=== PATIENT | male | born 1960 | race Caucasian/White ===

== ENCOUNTER → 2018-02-14 | Outpatient (CLI) | payer OTHER ==
--- NOTE | 2018-02-14 11:48 | Diagnostic Imaging Report ---
PROCEDURE:ABDOMINAL ULTRASOUND COMPARISON:CT of the abdomen from 01/12/2010 INDICATIONS:RUQ PAIN TECHNIQUE: Hamilton-scale and color sonographic images were obtained of the abdomen in transverse and sagittal planes. FINDINGS: Liver: 15.7 in length in right midclavicular line. Slightly increased echogenicity. No masses. Main portal vein: 0.9 cm in caliber,, hepatopetal flow Gallbladder: No stones, sludge, wall thickening, or pericolic cystic fluid. Common Bile Duct: 0.3 cm, no dilatation. Sonographic Castro's sign: Negative Right kidney: 13.6 cm in length. There is a 0.8 x 1.2 x 1.4 cm echogenic lesion in the midpole of the right kidney with no shadowing. There is technical artifact on color Doppler. No hydronephrosis. Left kidney: 12.5 cm in length. No stones, hydronephrosis, or solid mass. Spleen: 10.2 cm in length. Pancreas: The pancreas is not well-visualized due to overlying bowel gas Inferior vena cava: Patent Aorta: Within normal limits Ascites: None CONCLUSION: 1. Mildly increased liver parenchymal echogenicity suggesting steatosis. 2. No biliary ductal dilatation or gallbladder abnormality. 3. 1.4 cm echogenic lesion in the midpole of the right kidney probably represents a nonobstructing stone. Recommend stone protocol CT of the abdomen for confirmation. Dictated by: Dequan Neumann M.D. on 02/14/2018 at 11:49 Electronically approved by: Dequan Neumann M.D. on 02/14/2018 at 11:49
== END ==
LOC: US 09:14
PROVIDERS: ATTEND Family Medicine
DX: R10.11 Right upper quadrant pain (principal)
CPT/HCPCS: 76700

== ENCOUNTER → 2019-10-04 | Day surgery (SDC) | payer OTHER ==
[~2019-10-04] MED LIST: CALCIUM MAGNES1 EAC2 PO; CRESTOR10 MG PO; FENTANYL CITRATE/PF 100MCG/2 ML INJ ONE; FISH OIL 1,0001 EAC2 PO; FOLIC ACID PO; LIDOCAINE HCL 2% LOCAL INJ 5 ML SDV VIAL INJ ONE; LOSARTAN POTASS25 MG PO; MELOXICAM7.5 MG PO; METFORMIN HCL500 MG PO; MIDAZOLAM HCL 2 MG/2 ML VIAL ONE; MULTIVITAMINS1 EAC7 PO; PROPOFOL IV EMULSION 10 MG/ML 50 ML VIAL ONE; VITAMIN B122500 MCG PO; VITAMIN E400 UNI1 PO
--- OUTSIDE RECORDS SUMMARY | 2019-10-04 09:37 | XMS REPORT ---
Author [facility] Address Unknown Phone Unavailable Care Team Providers Care Newsperson Name Role Phone CHAIM ELLIOTT Unavailable Unavailable Payers Payer Name Policy Type Policy Number Effective Date Expiration Date Problems This patient has no known problems. Allergies, Adverse Reactions, Alerts Allergy Name Allergy Type Status Severity Reaction(s) Onset Date Inactive Date Treating Clinician Comments No Known Drug Allergies DA Active U 2018-09-11 00:00:00 No Known Allergies DA Active U 2013-09-25 00:00:00 Medications This patient has no known medications. Results Test Description Test Time Test Comments Text Results Atomic Results Result Comments US ABDOMEN COMPLETE [place] [address] Patient Name: ALYCIA VEGAS MR #: [id number] : 1960 Age/Sex: 57/M Req #: [id number] Adm Physician: Ordered by: CHAIM ELLIOTT DO Report #: [id number] Location: US Room/Bed: Procedure: [id number] US/US ABDOMEN COMPLETE Exam Date: 02/14/18 Exam Time: 0945 REPORT STATUS: Signed PROCEDURE: ABDOMINAL ULTRASOUND COMPARISON: CT of the abdomen from 01/12/2010 INDICATIONS: RUQ PAIN TECHNIQUE: Hamilton-scale and color sonographic images were obtained of the abdomen in transverse and sagittal planes. FINDINGS: Liver: 15.7 in length in right midclavicular line. Slightly increased echogenicity. No masses. Main portal vein: 0.9 cm in caliber,, hepatopetal flow Gallbladder: No stones, sludge, wall thickening, or pericolic cystic fluid. Common Bile Duct: 0.3 cm, no dilatation. Sonographic Castro's sign: Negative Right kidney: 13.6 cm in length. There is a 0.8 x 1.2 x 1.4 cm echogenic lesion in the midpole of the right kidney with no shadowing. There is technical artifact on color Doppler. No hydronephrosis. Left kidney: 12.5 cm in length. No stones, hydron ephrosis, or solid mass. Spleen: 10.2 cm in length. Pancreas: The pancreas is not well-visualized due to overlying bowel gas Inferior vena cava: Patent Aorta: Within normal limits Ascites: None CONCLUSION: 1. Mildly increased liver parenchymal echogenicity suggesting steatosis. 2. No biliary ductal dilatation or gallbladder abnormality. 3. 1.4 cm echogenic lesion in the midpole of the right kidney probably represents a nonobstructing stone. Recommend stone protocol CT of the abdomen for confirmation. Dictated by: Dariana Neumann M.D. on 02/14/2018 at 11:49 Electronically approved by: Dariana Neumann M.D. on 02/14/2018 at 11:49 Dictated By: DARIANA NEUMANN MD [id number] Transcribed By: MICAH on 02/14/18 1149 COPY TO: CHAIM ELLIOTT DO
[2019-10-04 13:00] VITALS: BP 149/99
--- NOTE | 2019-10-04 19:31 | Operative Report ---
DATE OF PROCEDURE: 10/04/2019 SURGEON: Stone Melendez MD PROCEDURE PERFORMED: Colonoscopy. PREOPERATIVE DIAGNOSES: History of colon polyps and hematochezia. POSTOPERATIVE DIAGNOSIS: Three colon polyps found, transverse colon, descending colon, sigmoid colon, all removed with hot biopsy forceps. Scattered diverticula were seen and internal hemorrhoids were noted. PREOPERATIVE MEDICATIONS: Consisted of MAC anesthesia. DESCRIPTION OF PROCEDURE: Using an [employer] video colonoscope was inserted into the patient's rectum and advanced without difficulty to the level of the cecum. The colon was studied from that level back down to the rectum. There was 4 mm size polyp in the mid transverse colon. Another 4 mm size polyp in the mid descending colon and another 4 mm size polyp in the sigmoid colon. All removed with hot biopsy forceps. Some scattered diverticula were seen and as we withdrew the scope to the patient's rectum, internal hemorrhoids were noted. The colonoscope was withdrawn from the patient's rectum and the procedure was ended. Stone Melendez MD SAF/MODL /[id number]
== END | disposition home or self-care (01) ==
LOC: OR 09:35
PROVIDERS: ATTEND Internal Medicine Gastroenterology
DX: K92.1 Melena (principal); D12.4 Benign neoplasm of descending colon; K59.00 Constipation, unspecified; K57.30 Diverticulosis of large intestine without perforation or abscess without bleeding; K64.8 Other hemorrhoids; N41.0 Acute prostatitis; I10 Essential (primary) hypertension; E11.9 Type 2 diabetes mellitus without complications; E78.5 Hyperlipidemia, unspecified; Z01.810 Encounter for preprocedural cardiovascular examination; Z79.84 Long term (current) use of oral hypoglycemic drugs; Z68.43 Body mass index [BMI] 50.0-59.9, adult
CPT/HCPCS: 36415; 45384; 82948; 93005; J2001; J2250; J2704; J3010; 45378

== ENCOUNTER 2025-01-10 12:19 | Inpatient (IN) | payer MEDICARE, OTHER ==
[~2025-01-10] VITALS: Ht 165.1 cm; Wt 123.8 kg
[~2025-01-10 12:19] MED LIST changes: -FENTANYL CITRATE/PF 100MCG/2 ML INJ ONE; -LIDOCAINE HCL 2% LOCAL INJ 5 ML SDV VIAL INJ ONE; -MIDAZOLAM HCL 2 MG/2 ML VIAL ONE; -PROPOFOL IV EMULSION 10 MG/ML 50 ML VIAL ONE
[2025-01-10] MEDS ORDERED: DEXMEDETOMIDINE HCL 200 MCG/2 ML VIAL ONE (12:24)
[2025-01-10 12:55] LABS: BASOPHILS % 0.2 % (0.0-1.0); EOSINOPHILS % 0.1 % (0.0-6.0); HEMATOCRIT 44.5 % (38.2-49.6); HEMOGLOBIN 15.4 g/dL (14.0-18.0); LYMPHOCYTES # (AUTO) 0.2 (1.0-3.2); LYMPHOCYTES % 2.4 % (18.0-39.1); MEAN CORPUSCULAR HGB CONC 34.6 g/dL (31-35); MEAN CORPUSCULAR VOLUME 89.5 fL (81-99); MONOCYTES # (AUTO) 0.2 (0.2-0.8); MONOCYTES % 2.2 % (4.4-11.3); NEUTROPHILS # (AUTO) 9.1 (2.1-6.9); NEUTROPHILS % 94.7 % (38.7-80.0); PLATELET COUNT 202 x10e3/uL (140-360); RED BLOOD COUNT 4.97 x10e6/uL (4.3-5.7); RED CELL DISTRIBUTION WIDTH 12.8 % (11.7-14.4); WHITE BLOOD COUNT 9.61 x10e3/uL (4.8-10.8)
[2025-01-10 13:17] LABS: ALBUMIN 3.7 g/dL (3.5-5.0); ALBUMIN/GLOBULIN RATIO 1.3 (0.8-2.0); ANION GAP 17.8 mmol/L (8-16); BILIRUBIN,TOTAL 3.4 mg/dL (0.2-1.2); CALCIUM 9.3 mg/dL (8.4-10.2); CREATININE, SERUM 0.95 mg/dL (0.72-1.25); POTASSIUM 3.8 mmol/L (3.5-5.1); TOTAL PROTEIN 6.5 g/dL (6.5-8.1)
[2025-01-10] MEDS ORDERED: IOPAMIDOL 370 MG/ML 100 ML INFUS..BTL INJ ONE (13:17)
[2025-01-10] MEDS: ONDANSETRON HCL INJ 2MG/ML 2ML 2 MG/ML VIAL IV STA (13:55)
[2025-01-10] MEDS: SODIUM CHLORIDE 0.9% 1000ML 1,000 ML IV STA ×2 (13:55→19:37)
[2025-01-10] MEDS: KETOROLAC TROMETHAMINE 30 MG/ML VIAL IV STA (13:55)
[2025-01-10] MEDS ORDERED: ONDANSETRON ODT4 MG PO (15:17)
[2025-01-10] MEDS ORDERED: DICYCLOMINE HCL20 MG PO (15:17)
[2025-01-10] MEDS: LACTATED RINGER'S 1,000 ML INJ ONE (17:47)
[2025-01-10] MEDS: ACETAMINOPHEN 1000 MG/100 ML IV STA (17:47)
[2025-01-10 17:59] LABS: BILIRUBIN,URINE NEGATIVE (NEGATIVE); CLARITY,URINE CLEAR (CLEAR); COLOR,URINE YELLOW (YELLOW); GLUCOSE, URINE NEGATIVE (NEGATIVE); KETONES,URINE NEGATIVE (NEGATIVE); LEUKOCYTE ESTERASE ,URINE NEGATIVE (NEGATIVE); NITRITE,URINE NEGATIVE (NEGATIVE); PH,URINE 7 (5 - 7); PROTEIN,URINE DIPSTICK NEGATIVE (NEGATIVE); URINE UROBILINOGEN 0.2 mg/dL (0.2 - 1)
[2025-01-10 18:00] LABS: RBC,URINE 0-5 /HPF (0-5); WBC,URINE (MAN) 0-5 /HPF (0-5)
[2025-01-10 18:01] LABS: BACTERIA,URINE RARE /HPF; EPITHELIAL CELLS,URINE RARE /LPF
[2025-01-10 19:51] VITALS: PULSE 108; RESP 19; TEMP 100.1
[2025-01-10] MEDS ORDERED: ONDANSETRON HCL INJ 2MG/ML 2ML 2 MG/ML VIAL IV PRN (20:15)
[2025-01-10 20:18] LABS: INFLUENZA A AG NEGATIVE (NEGATIVE)
[2025-01-10 20:19] LABS: CORONAVIRUS COVID-19 AG NEGATIVE (NEGATIVE); INFLUENZA B AG NEGATIVE (NEGATIVE)
[2025-01-10] MEDS: NOREPINEPHRINE 8 MG/D5W 250 ML 250 ML IV SCH (21:00)
[2025-01-10 21:06] VITALS: BP 138/83; PULSE 107; RESP 20; TEMP 98.5; O2SAT 96
[2025-01-10 21:08] LABS: TROPONIN I 0.001 ng/mL (0-0.300)
[2025-01-10] MEDS ORDERED: DEXTROSE 50% SYRINGE 50 ML IV PRN (21:15)
[2025-01-10 21:23] VITALS: BP 138/93; PULSE 86; RESP 20; TEMP 98.5; O2SAT 96
[2025-01-10 21:31] VITALS: PULSE 95; RESP 22; O2SAT 95
[2025-01-10 22:00] VITALS: BP 116/77; PULSE 107; RESP 22; O2SAT 94
[2025-01-10 22:50] LABS: CHOL/HDL RATIO 1.9 (3.9-4.7)
[2025-01-10 23:00] VITALS: BP 110/71; PULSE 108; RESP 23; O2SAT 95
[2025-01-11] VITALS (41 sets, daily range): BP systolic 84–144; BP diastolic 61–101; PULSE 74–114; RESP 13–23; TEMP 98.3–100.8; O2SAT 90–100
[2025-01-11] MEDS: Morphine 4mg INJECTION 4 MG/ML INJ IV PRN (00:05)
[2025-01-11] MEDS: SODIUM CHLORIDE 0.9% 1000ML 1,000 ML IV SCH (00:57)
[2025-01-11 06:49] LABS: BASOPHILS # (AUTO) 0.1 (0.0-0.1); BASOPHILS % 0.4 % (0.0-1.0); EOSINOPHILS # (AUTO) 0.2 (0.0-0.4); EOSINOPHILS % 1.7 % (0.0-6.0); HEMATOCRIT 38.9 % (38.2-49.6); HEMOGLOBIN 13.2 g/dL (14.0-18.0); LYMPHOCYTES # (AUTO) 0.9 (1.0-3.2); LYMPHOCYTES % 6.7 % (18.0-39.1); MEAN CORPUSCULAR HEMOGLOBIN 31.1 pg (28-32); MEAN CORPUSCULAR HGB CONC 33.9 g/dL (31-35); MEAN CORPUSCULAR VOLUME 91.5 fL (81-99); MONOCYTES # (AUTO) 0.7 (0.2-0.8); MONOCYTES % 5.1 % (4.4-11.3); NEUTROPHILS # (AUTO) 11.2 (2.1-6.9); NEUTROPHILS % 84.6 % (38.7-80.0); PLATELET COUNT 152 x10e3/uL (140-360); RED BLOOD COUNT 4.25 x10e6/uL (4.3-5.7); RED CELL DISTRIBUTION WIDTH 13.3 % (11.7-14.4); WHITE BLOOD COUNT 13.23 x10e3/uL (4.8-10.8)
[2025-01-11 07:06] LABS: ALBUMIN 2.9 g/dL (3.5-5.0); ALBUMIN/GLOBULIN RATIO 1.2 (0.8-2.0); ANION GAP 13.2 mmol/L (8-16); BILIRUBIN,TOTAL 2.3 mg/dL (0.2-1.2); CALCIUM 7.8 mg/dL (8.4-10.2); CREATININE, SERUM 1.02 mg/dL (0.72-1.25); POTASSIUM 4.2 mmol/L (3.5-5.1); TOTAL PROTEIN 5.4 g/dL (6.5-8.1)
[2025-01-11 07:12] LABS: TROPONIN I 0.005 ng/mL (0-0.300)
[2025-01-11] MEDS: INSULIN REGULAR, HUMAN 100 UNIT/1 ML SQ SCH (07:17)
[2025-01-11 07:59] LABS: BAND NEUTROPHILS % (MANUAL) 5 %; BLAST CELLS % MANUAL 1; LYMPHOCYTES % (MANUAL) 6 % (19-48); METAMYELOCYTES % (MANUAL) 6 % (0-0); MONOCYTES % (MANUAL) 5 % (3.4-9.0); MYELOCYTES % (MANUAL) 1 % (0-0); NEUTROPHILS % (MANUAL) 74 % (40-74); PLATELET ESTIMATE ADEQUATE; REACTIVE LYMPHOCYTES 2
[2025-01-11 08:00] LABS: PLATELET MORPHOLOGY COMMENT FEW LARGE
[2025-01-11] MEDS ORDERED: BISACODYL 10 MG SUPP PR PRN (11:15)
[2025-01-11] MEDS ORDERED: POLYETHYLENE GLYCOL 3350 17 GM PACK PO PRN (11:15)
[2025-01-11] MEDS: ACETAMINOPHEN 325 MG TAB PO PRN (11:55)
[2025-01-11 15:21] LABS: TROPONIN I 0.003 ng/mL (0-0.300)
[2025-01-11] MEDS: ENOXAPARIN SOD INJ 40 MG/0.4 ML SYR SC SCH (16:39)
[2025-01-11] MEDS: ZOLPIDEM TARTRATE 5 MG TAB PO PRN (20:14)
[2025-01-12] VITALS (29 sets, daily range): BP systolic 104–143; BP diastolic 73–106; PULSE 77–109; RESP 11–29; TEMP 97.8–100.5; O2SAT 92–99
[2025-01-12 07:28] LABS: BASOPHILS % 0.5 % (0.0-1.0); EOSINOPHILS % 0.1 % (0.0-6.0); HEMATOCRIT 39.7 % (38.2-49.6); HEMOGLOBIN 13.2 g/dL (14.0-18.0); LYMPHOCYTES # (AUTO) 0.6 (1.0-3.2); LYMPHOCYTES % 6.8 % (18.0-39.1); MEAN CORPUSCULAR HEMOGLOBIN 30.9 pg (28-32); MEAN CORPUSCULAR HGB CONC 33.2 g/dL (31-35); MONOCYTES # (AUTO) 0.6 (0.2-0.8); MONOCYTES % 6.7 % (4.4-11.3); NEUTROPHILS # (AUTO) 7.3 (2.1-6.9); NEUTROPHILS % 84.7 % (38.7-80.0); PLATELET COUNT 118 x10e3/uL (140-360); RED BLOOD COUNT 4.27 x10e6/uL (4.3-5.7); RED CELL DISTRIBUTION WIDTH 13.1 % (11.7-14.4); WHITE BLOOD COUNT 8.55 x10e3/uL (4.8-10.8)
[2025-01-12 07:49] LABS: ALBUMIN 2.6 g/dL (3.5-5.0); ALBUMIN/GLOBULIN RATIO 0.9 (0.8-2.0); ANION GAP 13.6 mmol/L (8-16); BILIRUBIN,TOTAL 1.2 mg/dL (0.2-1.2); CALCIUM 8.2 mg/dL (8.4-10.2); CREATININE, SERUM 0.76 mg/dL (0.72-1.25); POTASSIUM 3.6 mmol/L (3.5-5.1); TOTAL PROTEIN 5.6 g/dL (6.5-8.1)
[2025-01-13] VITALS (22 sets, daily range): BP systolic 110–156; BP diastolic 80–121; PULSE 69–89; RESP 8–28; TEMP 96.4–99.1; O2SAT 90–100
[2025-01-13 07:00] LABS: BASOPHILS % 0.4 % (0.0-1.0); EOSINOPHILS # (AUTO) 0.1 (0.0-0.4); EOSINOPHILS % 1.3 % (0.0-6.0); HEMATOCRIT 37.7 % (38.2-49.6); HEMOGLOBIN 12.7 g/dL (14.0-18.0); LYMPHOCYTES # (AUTO) 0.7 (1.0-3.2); LYMPHOCYTES % 13.2 % (18.0-39.1); MEAN CORPUSCULAR HEMOGLOBIN 30.5 pg (28-32); MEAN CORPUSCULAR HGB CONC 33.7 g/dL (31-35); MEAN CORPUSCULAR VOLUME 90.4 fL (81-99); MONOCYTES # (AUTO) 0.6 (0.2-0.8); MONOCYTES % 9.8 % (4.4-11.3); NEUTROPHILS # (AUTO) 4.2 (2.1-6.9); NEUTROPHILS % 74.9 % (38.7-80.0); PLATELET COUNT 117 x10e3/uL (140-360); RED BLOOD COUNT 4.17 x10e6/uL (4.3-5.7); RED CELL DISTRIBUTION WIDTH 12.9 % (11.7-14.4); WHITE BLOOD COUNT 5.59 x10e3/uL (4.8-10.8)
[2025-01-13 07:19] LABS: ALBUMIN 2.5 g/dL (3.5-5.0); ALBUMIN/GLOBULIN RATIO 0.8 (0.8-2.0); ANION GAP 12.5 mmol/L (8-16); BILIRUBIN,TOTAL 0.8 mg/dL (0.2-1.2); CALCIUM 8.6 mg/dL (8.4-10.2); CREATININE, SERUM 0.71 mg/dL (0.72-1.25); POTASSIUM 3.5 mmol/L (3.5-5.1); TOTAL PROTEIN 5.7 g/dL (6.5-8.1)
[2025-01-13] MEDS: POTASSIUM CHLORIDE 20 MEQ TAB CR PO STA (10:34)
[2025-01-13] MEDS: FUROSEMIDE INJ 10 MG/ML 2 ML VIAL IV ONE (13:05)
[2025-01-13 13:11] LABS: BAND NEUTROPHILS % (MANUAL) 8 %; BASOPHILS % (MANUAL) 1 % (0-1.5); EOSINOPHILS % (MANUAL) 2 % (0-7); LYMPHOCYTES % (MANUAL) 14 % (19-48); MONOCYTES % (MANUAL) 3 % (3.4-9.0); NEUTROPHILS % (MANUAL) 72 % (40-74); PLATELET ESTIMATE SLIGHTLY DECREASED; PLATELET MORPHOLOGY COMMENT NORMAL; RBC MORPHOLOGY COMMENT NORMAL
[2025-01-14] VITALS (7 sets, daily range): BP systolic 128–152; BP diastolic 81–95; PULSE 72–80; RESP 16–20; TEMP 97.4–98.7; O2SAT 97–99
[2025-01-14 06:01] LABS: BASOPHILS % 0.4 % (0.0-1.0); EOSINOPHILS # (AUTO) 0.2 (0.0-0.4); HEMATOCRIT 37.4 % (38.2-49.6); HEMOGLOBIN 12.9 g/dL (14.0-18.0); LYMPHOCYTES # (AUTO) 1.5 (1.0-3.2); MEAN CORPUSCULAR HEMOGLOBIN 30.6 pg (28-32); MEAN CORPUSCULAR HGB CONC 34.5 g/dL (31-35); MEAN CORPUSCULAR VOLUME 88.6 fL (81-99); MONOCYTES # (AUTO) 1.1 (0.2-0.8); MONOCYTES % 15.2 % (4.4-11.3); NEUTROPHILS # (AUTO) 4.2 (2.1-6.9); NEUTROPHILS % 59.6 % (38.7-80.0); PLATELET COUNT 142 x10e3/uL (140-360); RED BLOOD COUNT 4.22 x10e6/uL (4.3-5.7); RED CELL DISTRIBUTION WIDTH 12.8 % (11.7-14.4); WHITE BLOOD COUNT 7.06 x10e3/uL (4.8-10.8)
[2025-01-14 06:28] LABS: ALBUMIN 2.4 g/dL (3.5-5.0); ALBUMIN/GLOBULIN RATIO 0.7 (0.8-2.0); ANION GAP 10.4 mmol/L (8-16); BILIRUBIN,TOTAL 0.6 mg/dL (0.2-1.2); CALCIUM 8.9 mg/dL (8.4-10.2); CREATININE, SERUM 0.63 mg/dL (0.72-1.25); POTASSIUM 3.4 mmol/L (3.5-5.1); TOTAL PROTEIN 5.7 g/dL (6.5-8.1)
[2025-01-14] MEDS ORDERED: GADOBENATE DIMEGLUMINE 1 ML IV ONE (08:31)
[2025-01-14] MEDS: POTASSIUM CHLORIDE 10MEQ EA PO ONE (08:39)
[2025-01-14] MEDS: CEFTRIAXONE 2 GM in SODIUM CHLORIDE 0.9% 100 ML IV SCH (08:43)
[2025-01-14] MEDS: MAGNESIUM SULFATE 2GM/50ML 50 ML IV ONE (08:48)
[2025-01-14] MEDS: LOSARTAN POTASSIUM 25 MG TAB PO SCH (10:15)
[2025-01-14 11:02] LABS: HEPATITIS A ANTIBODY IGM (P) Negative; HEPATITIS B SURFACE AG (P) Negative; HEPATITIS C ANTIBODY Non Reactive
[2025-01-14 11:03] LABS: HEPATITIS B CORE IGM (P) Negative
[2025-01-14] MEDS: CYCLOBENZAPRINE HCL 10 MG TAB PO ONE (13:00)
[2025-01-14] MEDS: CYCLOBENZAPRINE HCL 10 MG TAB PO PRN (22:59)
[2025-01-15] VITALS (7 sets, daily range): BP systolic 135–149; BP diastolic 69–93; PULSE 66–83; RESP 17–18; TEMP 97.5–98.7; O2SAT 97–100
[2025-01-15 06:35] LABS: BASOPHILS # (AUTO) 0.1 (0.0-0.1); BASOPHILS % 0.8 % (0.0-1.0); EOSINOPHILS # (AUTO) 0.2 (0.0-0.4); EOSINOPHILS % 3.8 % (0.0-6.0); HEMOGLOBIN 13.3 g/dL (14.0-18.0); LYMPHOCYTES # (AUTO) 1.7 (1.0-3.2); LYMPHOCYTES % 27.4 % (18.0-39.1); MEAN CORPUSCULAR HEMOGLOBIN 30.4 pg (28-32); MEAN CORPUSCULAR HGB CONC 33.3 g/dL (31-35); MEAN CORPUSCULAR VOLUME 91.3 fL (81-99); MONOCYTES # (AUTO) 0.9 (0.2-0.8); MONOCYTES % 14.6 % (4.4-11.3); NEUTROPHILS # (AUTO) 3.3 (2.1-6.9); NEUTROPHILS % 52.5 % (38.7-80.0); PLATELET COUNT 156 x10e3/uL (140-360); RED BLOOD COUNT 4.38 x10e6/uL (4.3-5.7); RED CELL DISTRIBUTION WIDTH 13.1 % (11.7-14.4); WHITE BLOOD COUNT 6.35 x10e3/uL (4.8-10.8)
[2025-01-15 07:00] LABS: ALBUMIN 2.4 g/dL (3.5-5.0); ALBUMIN/GLOBULIN RATIO 0.7 (0.8-2.0); ANION GAP 14.9 mmol/L (8-16); BILIRUBIN,TOTAL 0.5 mg/dL (0.2-1.2); CALCIUM 8.9 mg/dL (8.4-10.2); CREATININE, SERUM 0.63 mg/dL (0.72-1.25); MAGNESIUM 1.6 MG/DL (1.3-2.1); POTASSIUM 3.9 mmol/L (3.5-5.1); TOTAL PROTEIN 5.8 g/dL (6.5-8.1)
[2025-01-15] MEDS: MAGNESIUM SULFATE 2GM/50ML 50 ML IV ONE (13:56)
[2025-01-16 06:14] LABS: BASOPHILS % 0.4 % (0.0-1.0); EOSINOPHILS # (AUTO) 0.3 (0.0-0.4); EOSINOPHILS % 3.8 % (0.0-6.0); HEMATOCRIT 39.3 % (38.2-49.6); HEMOGLOBIN 13.4 g/dL (14.0-18.0); LYMPHOCYTES # (AUTO) 2.1 (1.0-3.2); LYMPHOCYTES % 28.8 % (18.0-39.1); MEAN CORPUSCULAR HEMOGLOBIN 30.2 pg (28-32); MEAN CORPUSCULAR HGB CONC 34.1 g/dL (31-35); MEAN CORPUSCULAR VOLUME 88.5 fL (81-99); MONOCYTES % 13.8 % (4.4-11.3); NEUTROPHILS # (AUTO) 3.9 (2.1-6.9); NEUTROPHILS % 52.5 % (38.7-80.0); PLATELET COUNT 209 x10e3/uL (140-360); RED BLOOD COUNT 4.44 x10e6/uL (4.3-5.7); RED CELL DISTRIBUTION WIDTH 13.1 % (11.7-14.4); WHITE BLOOD COUNT 7.39 x10e3/uL (4.8-10.8)
[2025-01-16 06:39] LABS: ALBUMIN 2.6 g/dL (3.5-5.0); ALBUMIN/GLOBULIN RATIO 0.7 (0.8-2.0); BILIRUBIN,TOTAL 0.6 mg/dL (0.2-1.2); CALCIUM 8.9 mg/dL (8.4-10.2); CREATININE, SERUM 0.66 mg/dL (0.72-1.25); MAGNESIUM 1.7 MG/DL (1.3-2.1); TOTAL PROTEIN 6.1 g/dL (6.5-8.1)
[2025-01-16 08:26] VITALS: BP 143/97; PULSE 78; RESP 19; TEMP 98.4; O2SAT 97
[2025-01-16 09:48] VITALS: BP 143/97; PULSE 78; RESP 19; TEMP 98.4; O2SAT 97
[2025-01-16] MEDS: SODIUM CHLORIDE 0.9% 250ML 250 ML ONE (11:02)
[2025-01-16 12:24] VITALS: BP 127/92; PULSE 72; RESP 20; TEMP 98.2; O2SAT 98
[2025-01-16 16:51] VITALS: BP 146/93; PULSE 80; RESP 20; TEMP 98.2; O2SAT 99
[2025-01-17 06:33] LABS: BASOPHILS % 0.5 % (0.0-1.0); EOSINOPHILS # (AUTO) 0.3 (0.0-0.4); EOSINOPHILS % 3.5 % (0.0-6.0); HEMATOCRIT 42.5 % (38.2-49.6); HEMOGLOBIN 14.4 g/dL (14.0-18.0); LYMPHOCYTES # (AUTO) 2.3 (1.0-3.2); MEAN CORPUSCULAR HEMOGLOBIN 30.3 pg (28-32); MEAN CORPUSCULAR HGB CONC 33.9 g/dL (31-35); MEAN CORPUSCULAR VOLUME 89.5 fL (81-99); MONOCYTES # (AUTO) 0.9 (0.2-0.8); MONOCYTES % 10.2 % (4.4-11.3); NEUTROPHILS # (AUTO) 4.9 (2.1-6.9); NEUTROPHILS % 57.9 % (38.7-80.0); PLATELET COUNT 249 x10e3/uL (140-360); RED BLOOD COUNT 4.75 x10e6/uL (4.3-5.7); RED CELL DISTRIBUTION WIDTH 12.9 % (11.7-14.4); WHITE BLOOD COUNT 8.51 x10e3/uL (4.8-10.8)
[2025-01-17 06:44] LABS: ANION GAP 13.1 mmol/L (8-16); CALCIUM 9.3 mg/dL (8.4-10.2); CREATININE, SERUM 0.71 mg/dL (0.72-1.25); POTASSIUM 4.1 mmol/L (3.5-5.1)
[2025-01-17 08:00] VITALS: BP 146/93; PULSE 80; RESP 20; TEMP 98.2; O2SAT 99
[2025-01-17] MEDS ORDERED: LIDOCAINE HCL 2% LOCAL INJ 5 ML SDV VIAL INJ ONE (11:14)
[2025-01-17] MEDS ORDERED: ROCURONIUM BROMIDE 1 ML IV ONE (11:14)
[2025-01-17] MEDS ORDERED: PROPOFOL IV EMULSION 10 MG/ML 20 ML VIAL ONE (11:15)
[2025-01-17] MEDS ORDERED: FENTANYL CITRATE/PF 100MCG/2 ML INJ ONE ×2 (11:15→12:38)
[2025-01-17] MEDS ORDERED: ACETAMINOPHEN 1000 MG/100 ML 100 ML IV ONE (11:15)
[2025-01-17] MEDS ORDERED: MIDAZOLAM HCL 2 MG/2 ML VIAL ONE (11:15)
[2025-01-17] MEDS ORDERED: SEVOFLURANE INHAL SOLN 250 ML PEN BTL ONE (11:15)
[2025-01-17 11:53] VITALS: BP 130/87; PULSE 73; RESP 18; TEMP 98.2; O2SAT 96
[2025-01-17] MEDS ORDERED: ONDANSETRON HCL INJ 2MG/ML 2ML 2 MG/ML VIAL ONE (11:58)
[2025-01-17] MEDS ORDERED: DEXAMETHASONE SOD PHOS INJ 4 MG/ML SDV ONE (11:58)
[2025-01-17] MEDS ORDERED: SUGAMMADEX SODIUM 200 MG/2 ML VIAL IV ONE (12:57)
[2025-01-17] MEDS ORDERED: LACTATED RINGER'S 1,000 ML ONE (13:48)
[2025-01-17] MEDS: ONDANSETRON HCL INJ 2MG/ML 2ML 2 MG/ML VIAL ONE (14:00)
[2025-01-17] MEDS: FENTANYL CITRATE/PF 100MCG/2 ML INJ ONE (14:15)
[2025-01-17] MEDS: HYDROMORPHONE 1MG/1ML INJ IV PRN (15:42)
[2025-01-17] MEDS: SODIUM CHLORIDE 0.9% 1000ML 1,000 ML IV SCH (15:52)
[2025-01-17 20:00] VITALS: BP 154/94; PULSE 70; RESP 18; TEMP 97.5; O2SAT 97
[2025-01-18 05:50] LABS: ALBUMIN 2.8 g/dL (3.5-5.0); ALBUMIN/GLOBULIN RATIO 0.8 (0.8-2.0); ANION GAP 13.2 mmol/L (8-16); BILIRUBIN,TOTAL 0.6 mg/dL (0.2-1.2); CREATININE, SERUM 0.7 mg/dL (0.72-1.25); POTASSIUM 4.2 mmol/L (3.5-5.1); TOTAL PROTEIN 6.4 g/dL (6.5-8.1)
[2025-01-18 07:54] LABS: BASOPHILS % 0.4 % (0.0-1.0); EOSINOPHILS # (AUTO) 0.1 (0.0-0.4); EOSINOPHILS % 0.8 % (0.0-6.0); HEMATOCRIT 40.1 % (38.2-49.6); HEMOGLOBIN 13.5 g/dL (14.0-18.0); LYMPHOCYTES # (AUTO) 2.4 (1.0-3.2); LYMPHOCYTES % 22.2 % (18.0-39.1); MEAN CORPUSCULAR HEMOGLOBIN 30.6 pg (28-32); MEAN CORPUSCULAR HGB CONC 33.7 g/dL (31-35); MEAN CORPUSCULAR VOLUME 90.9 fL (81-99); MONOCYTES # (AUTO) 0.8 (0.2-0.8); MONOCYTES % 7.2 % (4.4-11.3); NEUTROPHILS # (AUTO) 7.3 (2.1-6.9); NEUTROPHILS % 68.7 % (38.7-80.0); PLATELET COUNT 288 x10e3/uL (140-360); RED BLOOD COUNT 4.41 x10e6/uL (4.3-5.7); RED CELL DISTRIBUTION WIDTH 13.1 % (11.7-14.4); WHITE BLOOD COUNT 10.65 x10e3/uL (4.8-10.8)
[2025-01-18] MEDS: HYDROCODONE/APAP 7.5MG-325MG 1 EA TAB PO PRN (07:56)
[2025-01-18 08:46] VITALS: BP 158/90; PULSE 69; RESP 20; TEMP 97.9; O2SAT 99
[2025-01-18 09:05] VITALS: BP 158/90; PULSE 69; RESP 20; TEMP 97.9; O2SAT 99
[2025-01-18 14:35] VITALS: BP 128/74; PULSE 70; RESP 18; TEMP 98.3; O2SAT 99
[2025-01-18] MEDS ORDERED: CYCLOBENZAPRINE10 MG PO (17:19)
[2025-01-18] MEDS ORDERED: PANTOPRAZOLE SO40 MG PO (17:19)
[2025-01-18 17:33] VITALS: BP 136/85; PULSE 72; RESP 20; TEMP 98.2; O2SAT 97
== END 2025-01-18 18:05 | disposition home or self-care (01) | DRG 853 ==
LOC: ER 12:35 → ICU 20:14 → MED/SURG3 01-13 19:36
PROVIDERS: ADMIT Internal Medicine; ATTEND Internal Medicine
PROC: 04HY33Z Insertion of Infusion Device into Lower Artery, Percutaneous Approach (ICD-10-PCS; 2025-01-10)
PROC: 0FB24ZX Excision of Left Lobe Liver, Percutaneous Endoscopic Approach, Diagnostic (ICD-10-PCS; 2025-01-17)
PROC: 0FT44ZZ Resection of Gallbladder, Percutaneous Endoscopic Approach (ICD-10-PCS; 2025-01-17)
PROC: 0FB14ZX Excision of Right Lobe Liver, Percutaneous Endoscopic Approach, Diagnostic (ICD-10-PCS; principal; 2025-01-17 11:49)
DX: A41.51 Sepsis due to Escherichia coli [E. coli] (principal); J81.0 Acute pulmonary edema; R65.21 Severe sepsis with septic shock; K85.10 Biliary acute pancreatitis without necrosis or infection; C78.7 Secondary malignant neoplasm of liver and intrahepatic bile duct; Q43.8 Other specified congenital malformations of intestine; Z68.42 Body mass index [BMI] 45.0-49.9, adult; K80.30 Calculus of bile duct with cholangitis, unspecified, without obstruction; E66.01 Morbid (severe) obesity due to excess calories; B96.1 Klebsiella pneumoniae [K. pneumoniae] as the cause of diseases classified elsewhere; R16.0 Hepatomegaly, not elsewhere classified; I10 Essential (primary) hypertension; E11.9 Type 2 diabetes mellitus without complications; E78.2 Mixed hyperlipidemia; R74.02 Elevation of levels of lactic acid dehydrogenase [LDH]; K75.81 Nonalcoholic steatohepatitis (NASH); K74.00 Hepatic fibrosis, unspecified; K59.00 Constipation, unspecified; K52.9 Noninfective gastroenteritis and colitis, unspecified; R74.01 Elevation of levels of liver transaminase levels; Z11.52 Encounter for screening for COVID-19; Z79.84 Long term (current) use of oral hypoglycemic drugs; Z87.891 Personal history of nicotine dependence
CPT/HCPCS: 36415; 71045; 74177; 74183; 76705; 80048; 80053; 80061; 81001; 82105; 82378; 82550; 82948; 83605; 83690; 83735; 83880; 84484; 85025; 86301; 87040; 87071; 87086; 87186; 87205; 88304; 88307; 88342; 93005; 93306; 94799; 96372; 99285; C1766; J0696; J1100; J1171; J1650; J1885; J1940; J2003; J2250; J2270; J2405; J2470; J2543; J3475; J7030; J7050; Q9967